=== PATIENT | male | born 1980 | race African-American/Black ===

== ENCOUNTER 2024-07-14 01:05 | Day surgery (SDC) | payer OTHER, SELFPAY ==
[2024-06-24 14:14] VITALS: BMI 25.4
[2024-07-14 08:50] VITALS: BP 122/84; PULSE 71; RESP 18; TEMP 36.1; O2SAT 100
[2024-07-14] MEDS: LACTATED RINGERS 1,000 ML 150 ML IV CONT (08:59)
--- NOTE | 2024-07-14 09:45 | PM.HPGS ---
History of Present Illness History of Present Illness Consent: Risks, benefits, and alternatives have been discussed and questions answered. Patient agrees to proceed with procedure. Chief complaint: neoplasm screening Narrative: Andres Guy is a 43 year old male here for first screening colonoscopy Review of Systems Review of Systems: All systems reviewed & are unremarkable except as noted in HPI and below PMFSH Past Medical History Medical History (Updated 07/14/24 @ 09:45 by Josr King MD) Colon cancer screening Family History Family History (System 02/16/20 @ 12:59 by Kaylyn Syed) Mother Diabetes mellitus Family history of hypercholesterolemia Hypertension Grandparent Diabetes mellitus Family history of hypercholesterolemia Hypertension Family history of cardiovascular disease Family history of coronary artery disease Father Hypertension Family history of kidney disease Father Hypertension Patient's father is in good health Mother Patient's mother is in good health Hypertension Sibling Patient's sister is in good health Patient's brother is in good health Other Malignant neoplasm of prostate Social History Social History (System 02/16/20 @ 12:59 by Kaylyn Syed) Smoking status: Never smoker Second hand tobacco smoke exposure: No Alcohol intake: never Living arrangements: with family Spiritual care concerns: No Meds Home Medications and Allergies Home Medications Medication Instructions Recorded Confirmed Type No Home Medications 06/24/24 07/14/24 History Allergies Allergy/AdvReac Type Severity Reaction Status Date / Time No Known Allergies Allergy Verified 07/14/24 08:49 Vital Signs Vital Signs - 24 hr 07/14/24 08:50 Temperature 97 F L Pulse Rate 71 Respiratory Rate 18 Blood Pressure 122/84 Pulse Oximetry 100 Oxygen Delivery Room Air Exam Const: General: comfortable and no acute distress HENMT: Face/Nose/Sinus: Normal nares present Eyes: General: appearance normal, both eyes and all related structures Neck: Neck: no JVD Resp: Auscultation: clear to auscultation bilaterally Cardio: Rate: regular rate Rhythm: regular rhythm GI: Inspection: non-distended GI Palp: Yes Soft to palpation Skin: General skin exam: normal color Neuro: General: gait normal Speech: normal speech Extrem: General: normal to inspection Psych: Mental Status: mental status grossly normal Assessment and Plan Assessment and plan (1) Colon cancer screening: Code(s): Z12.11 - Encounter for screening for malignant neoplasm of colon Status: Acute Assessment and Plan: colonoscopy
[2024-07-14 10:08] VITALS: BP 97/57; PULSE 55; RESP 15; O2SAT 98
[2024-07-14 10:18] VITALS: BP 93/57; PULSE 51; RESP 15; O2SAT 100
[2024-07-14 10:28] VITALS: BP 109/68; PULSE 51; RESP 15; O2SAT 100
--- NOTE | 2024-08-08 17:10 | P.PNAN_ITS ---
Anes - Initial Pre Proc Eval Procedure: Operation Date: 07/14/24 10:00 Proposed Procedures p Screening Colonoscopy - Josr King MD Date/Time: 08/08/24 17:10 Surgeon: Josr King MD Pre Op Diagnosis: neoplasm screening Patient Data Age: 43 Gender: M Height: 1.8 m Weight: 84.7 kg Last Vital Signs Temp 36.1 C L 07/14/24 08:50 Pulse 51 L 07/14/24 10:28 Resp 15 07/14/24 10:28 BP 109/68 07/14/24 10:28 Pulse Ox 100 07/14/24 10:28 O2 Del Method Room Air 07/14/24 10:28 Allergies Allergy/AdvReac Type Severity Reaction Status Date / Time No Known Allergies Allergy Verified 07/14/24 08:49 Home Medications Medication Instructions Recorded Confirmed Type No Home Medications 06/24/24 07/14/24 History Patient hx anesthesia problems: none Family hx anesthesia problems: none Results Review: All pre-operative results and documents have been reviewed as part of the pre-operative evaluation. [facility] Past Medical History Medical History Colon cancer screening Family History Family History (System 02/16/20 @ 12:59 by Kaylyn Syed) Mother Diabetes mellitus Family history of hypercholesterolemia Hypertension Grandparent Diabetes mellitus Family history of hypercholesterolemia Hypertension Family history of cardiovascular disease Family history of coronary artery disease Father Hypertension Family history of kidney disease Father Hypertension Patient's father is in good health Mother Patient's mother is in good health Hypertension Sibling Patient's sister is in good health Patient's brother is in good health Other Malignant neoplasm of prostate Social History Social History (System 02/16/20 @ 12:59 by Kaylyn Syed) Smoking status: Never smoker Second hand tobacco smoke exposure: No Alcohol intake: never Living arrangements: with family Spiritual care concerns: No Anes - Eval Final PreProcedure Day of Procedure 08/08/24 17:10 Patient weight: overweight ASA classification: II Emergent: no Anesthetic plan: proceed Anesthesia type and monitoring: general GIVS and standard monitoring Results Review: All pre-operative results and documents have been reviewed as part of the pre- operative evaluation. Informed Consent: The patient's anesthetic plan and its attendant risks and benefits were discussed with the patient/family/POA. Questions were solicited and answers provided to the satisfaction of the patient/family/POA.
== END 2024-07-14 10:38 | disposition home or self-care (01) ==
PROVIDERS: PCP Nurse Practitioner; Visit Provider Internal Medicine Gastroenterology
PROC: 0DJD8ZZ Inspection of Lower Intestinal Tract, Via Natural or Artificial Opening Endoscopic (ICD-10-PCS; CPT 45378; principal; 2024-07-14 10:00)
DX: Z12.11 Encounter for screening for malignant neoplasm of colon (principal); K64.8 Other hemorrhoids
CPT/HCPCS: 45378; J2003; J2704; J7120